=== PATIENT | female | born 1990 | race Caucasian/White ===

== ENCOUNTER 2018-03-01 19:25 | Emergency (ER) | payer OTHER ==
[~2018-03-01] VITALS: Ht 149.9 cm; Wt 74.8 kg
[~2018-03-01 19:25] MED LIST: CLONAZEPAM0.5 MG; GILTUSS COUGH-118 ML PO; PROVENTIL3 ML/2.5 M IH; PROZAC WEEKLY90 MG; SEROQUEL50 MG
== END 2018-03-01 21:50 | disposition home or self-care (01) ==
LOC: ER 19:25
DX: S93.491A Sprain of other ligament of right ankle, initial encounter (principal); W18.39XA Other fall on same level, initial encounter; Y93.89 Activity, other specified; Y92.512 Supermarket, store or market as the place of occurrence of the external cause; Y99.8 Other external cause status

== ENCOUNTER 2018-11-23 20:07 | Emergency (ER) | payer OTHER ==
[~2018-11-23] VITALS: Ht 149.9 cm; Wt 72.6 kg
[2018-11-23] MEDS ORDERED: CLARITIN10 M1 PO (20:48)
[2018-11-23] MEDS ORDERED: TUSNEL LIQUID178 ML PO (20:48)
[2018-11-23] MEDS ORDERED: ZITHROMAX500 MG PO (20:48)
== END 2018-11-23 21:01 | disposition home or self-care (01) ==
LOC: ER 20:07
DX: J03.80 Acute tonsillitis due to other specified organisms (principal); R05 Cough